=== PATIENT | female | born 1960 | race Caucasian/White ===

== ENCOUNTER 2016-07-04 15:22 | Inpatient (IN) | payer MEDICAID ==
[~2016-07-04] VITALS: Ht 170.2 cm; Wt 98.0 kg
[2016-07-04 16:27] LABS: Basophils # (auto) 0 uL; Eosinophils # (auto) 0 uL; Hematocrit 39.6 % (36.0-46.0); Lymphocytes # (auto) 1.2 uL; Lymphocytes % (auto) 10.3 % (10.0-50.0); Mean Corpuscular Hemoglobin 29.7 pg (28.0-32.0); Mean Corpuscular Hgb Conc. 32.8 g/dL (32.0-36.0); Mean Corpuscular Volume 90.7 fL (80.0-100.0); Mean Platelet Volume 9.7 fL (7.4-10.4); Monocytes # (auto) 0.8 uL; Monocytes % (auto) 6.2 % (0.0-12.0); Neutrophils # (auto) 10.1 uL; Neutrophils % (auto) 83.5 % (37.0-80.0); Platelet Count (auto) 219 10^3/uL (140-450); Red Cell Distribution Width 15.7 % (11.6-16.0)
[2016-07-04 17:00] LABS: Albumin 3.9 g/dL (3.4-5.0); Alkaline Phosphatase 89 U/L (45-117); Anion Gap 9 (5-15); Aspartate Aminotransferase 14 U/L (15-37); BUN/Creatinine Ratio 10.9; Bilirubin, Total 0.4 mg/dL (0.2-1.0); Blood Urea Nitrogen 10 mg/dL (7-18); Calcium 9.1 mg/dL (8.5-10.1); Carbon Dioxide 28 mmol/L (21-32); Chloride 109 mmol/L (98-107); GFR African American 81 mL/min; GFR Non-African American 67 mL/min; Glucose 125 mg/dL (74-106); Sodium 146 mmol/L (136-145); Total Protein 7.8 g/dL (6.4-8.2)
[2016-07-04 17:05] LABS: INR 0.96 (0.9-1.15); Partial Thromboplastin Time 28.1 sec (22.64-33.71); Prothrombin Time 10.4 sec (9.37-12.3)
[2016-07-04 17:10] LABS: Magnesium 2.5 mg/dL (1.6-2.6)
[2016-07-04] MEDS ORDERED: MORPHINE SULFATE 4 MG/ML SYRG IV ONE (21:30)
[2016-07-04] MEDS ORDERED: ONDANSETRON HCL 4 MG/2 ML VIAL IV ONE (21:30)
[2016-07-04] MEDS ORDERED: LEVOFLOXACIN 500MG 100 ML IV ONE (23:45)
[2016-07-05] MEDS ORDERED: HYDROmorphone HCL 2 MG/ML VL ONE (00:20)
[2016-07-05] MEDS ORDERED: ONDANSETRON HCL 4 MG/2 ML VIAL IV ONE ×2 (00:30→04:15)
[2016-07-05] MEDS ORDERED: HYDROmorphone HCL 2 MG/ML VL IV ONE (00:45)
[2016-07-05] MEDS ORDERED: DEXTROSE (50%) 50ML SYRG IV PRN (06:00)
[2016-07-05] MEDS ORDERED: LACTULOSE 20Gm/30ML SOLN PO PRN (06:00)
[2016-07-05] MEDS ORDERED: PROCHLORPERAZINE EDISYLATE 5 MG/ML 2ML VIAL IV PRN (06:00)
[2016-07-05] MEDS ORDERED: ALBUTEROL SULF 2.5 MG/0.5ML(0.5%) NEB SOLN NEB PRN (06:00)
[2016-07-05] MEDS ORDERED: NITROGLYCERIN 0.4 MG SL TAB SL PRN (06:00)
[2016-07-05] MEDS ORDERED: LORazepam 0.5 MG TAB PO PRN (06:00)
[2016-07-05] MEDS: ACCU-CHEK COMFORT CURVE STRIP VI SCH ×4 (06:00→23:31)
[2016-07-05] MEDS ORDERED: SODIUM CHLORIDE 0.9% 1,000 ML IV ONE (06:00)
[2016-07-05] MEDS ORDERED: ACETAMINOPHEN 500 MG TAB PO PRN (06:00)
[2016-07-05] MEDS ORDERED: MORPHINE SULF INJ 2 MG/ML SYRINGE 1ML IV PRN ×2 (06:00)
[2016-07-05] MEDS ORDERED: TEMAZEPAM 15 MG CAP PO PRN (06:00)
[2016-07-05] MEDS: ALBUTEROL SULF 2.5 MG/0.5ML(0.5%) NEB SOLN NEB SCH ×4 (08:45→21:15)
[2016-07-05] MEDS: SODIUM CHLORIDE 0.9% 1,000 ML IV SCH ×3 (08:58→16:23)
[2016-07-05] MEDS: cefTRIAXone 1GM/50ML D5W 50 ML IV SCH (09:05)
[2016-07-05] MEDS: HYDROcodone-ACET 5/325MG TAB PO PRN ×2 (09:09→18:24)
[2016-07-05] MEDS ORDERED: ENOXAPARIN SOD 40 MG/0.4 ML SYRINGE SC SCH (10:00)
[2016-07-05] MEDS: ASPirin 81 mg TAB PO SCH (10:15)
[2016-07-05] MEDS: AZITHROMYCIN 500MG/D5W 250ML 250 ML IV SCH (10:15)
[2016-07-05 14:02] VITALS: BP 97/73
[2016-07-05] MEDS ORDERED: ADENOSINE 72 MG in GIVE UN-DILUTED 0 ML IV ONE (14:30)
[2016-07-05 14:38] VITALS: BP 97/73
[2016-07-05] MEDS ORDERED: LISI-646 PO (14:39)
[2016-07-05] MEDS ORDERED: ASPI81CH43 PO (14:39)
[2016-07-05 16:27] VITALS: BP 128/74
[2016-07-05 21:31] VITALS: BP 120/75
[2016-07-05] MEDS ORDERED: ATORVASTATIN 20 MG TAB PO SCH (22:00)
[2016-07-06] MEDS: SODIUM CHLORIDE 0.9% 1,000 ML IV SCH (03:18)
[2016-07-06 04:47] VITALS: BP 121/77
[2016-07-06 05:32] LABS: Basophils # (auto) 0 uL; Basophils % (auto) 0.4 % (0.0-2.0); Eosinophils # (auto) 0 uL; Eosinophils % (auto) 0.8 % (0.0-7.0); Hematocrit 33.2 % (36.0-46.0); Lymphocytes # (auto) 1.6 uL; Lymphocytes % (auto) 28.1 % (10.0-50.0); Mean Corpuscular Hemoglobin 30.2 pg (28.0-32.0); Mean Corpuscular Hgb Conc. 33.1 g/dL (32.0-36.0); Mean Corpuscular Volume 91.3 fL (80.0-100.0); Mean Platelet Volume 9.6 fL (7.4-10.4); Monocytes # (auto) 0.5 uL; Monocytes % (auto) 8.4 % (0.0-12.0); Neutrophils # (auto) 3.5 uL; Neutrophils % (auto) 62.3 % (37.0-80.0); Platelet Count (auto) 161 10^3/uL (140-450); Red Cell Distribution Width 15.7 % (11.6-16.0); White Blood Cell 5.6 10^3/uL (4.4-10.8)
[2016-07-06] MEDS: ACCU-CHEK COMFORT CURVE STRIP VI SCH ×2 (05:41→12:15)
[2016-07-06 05:54] LABS: BUN/Creatinine Ratio 13.5; Calcium 8.1 mg/dL (8.5-10.1); Potassium 3.8 mmol/L (3.5-5.1)
[2016-07-06 09:00] VITALS: BP 130/84
[2016-07-06] MEDS: cefTRIAXone 1GM/50ML D5W 50 ML IV SCH (10:10)
[2016-07-06] MEDS: ASPirin 81 mg TAB PO SCH (10:10)
[2016-07-06] MEDS: AZITHROMYCIN 500MG/D5W 250ML 250 ML IV SCH (10:12)
[2016-07-06] MEDS ORDERED: SUMAtriptan SUCCINATE 6 MG/0.5 ML VL SC PRN ×2 (12:00→13:00)
[2016-07-06] MEDS: ALBUTEROL SULF 2.5 MG/0.5ML(0.5%) NEB SOLN NEB SCH ×2 (12:00→12:35)
[2016-07-06] MEDS ORDERED: AZI250T PO (12:17)
[2016-07-06] MEDS ORDERED: OMEP20CA5 PO (12:17)
[2016-07-06] MEDS ORDERED: SIMV-8 PO (12:17)
[2016-07-06 13:00] VITALS: BP 147/91
[2016-07-06 16:18] VITALS: BP 147/91
[2016-07-06 16:58] VITALS: BP 140/98
== END 2016-07-06 17:55 | disposition home or self-care (01) | DRG 243 ==
LOC: ER 15:30 → TELE 15:31 → TELE-E-ADS 07-05 12:33 → TELE-WESTW 07-05 14:35
PROVIDERS: ADMIT Internal Medicine; ATTEND Hospitalist
DX: K21.9 Gastro-esophageal reflux disease without esophagitis (principal); I10 Essential (primary) hypertension; E66.9 Obesity, unspecified; E78.5 Hyperlipidemia, unspecified; Z83.3 Family history of diabetes mellitus; Z82.49 Family history of ischemic heart disease and other diseases of the circulatory system; Z68.33 Body mass index [BMI] 33.0-33.9, adult; Z87.19 Personal history of other diseases of the digestive system
CPT/HCPCS: 36415; 71010; 71020; 78452; 80048; 80053; 80061; 82150; 82550; 82962; 83036; 83690; 83735; 84484; 85025; 85379; 85610; 85652; 85730; 86141; 87040; 93017; 94640; 94761; 96365; 96366; 96375; 96376; G0434; J0153; J0696; J1956; J2405

== ENCOUNTER 2019-06-13 04:55 | Emergency (ER) | payer MEDICAID, OTHER ==
[~2019-06-13] VITALS: Ht 170.2 cm; Wt 80.7 kg
[~2019-06-13 04:55] MED LIST: ASPI81CH43 PO; AZIT250T8 PO; LISI-646 PO; OMEP20CA74 PO; SIMV-8 PO
[2019-06-13 05:55] VITALS: BP 140/110
== END 2019-06-13 06:42 | disposition home or self-care (01) ==
LOC: ER 04:56
DX: H61.21 Impacted cerumen, right ear (principal); H66.91 Otitis media, unspecified, right ear; I10 Essential (primary) hypertension; Z90.710 Acquired absence of both cervix and uterus; Z79.899 Other long term (current) drug therapy

== ENCOUNTER 2019-07-05 09:20 | Emergency (ER) | payer SELFPAY ==
[~2019-07-05] VITALS: Ht 170.2 cm; Wt 80.7 kg
[2019-07-05 09:28] VITALS: BP 149/95
[2019-07-05] MEDS ORDERED: ALBUTEROL SULF 2.5 MG/0.5ML(0.5%) NEB SOLN NEB ONE (10:15)
[2019-07-05] MEDS ORDERED: IPRATROPIUM BROM 0.5 MG/2.5ML INH SOL NEB ONE (10:15)
== END 2019-07-05 10:47 | disposition home or self-care (01) ==
LOC: ER 09:20
DX: J20.9 Acute bronchitis, unspecified (principal); H92.02 Otalgia, left ear; I10 Essential (primary) hypertension; Z90.710 Acquired absence of both cervix and uterus; Z90.89 Acquired absence of other organs
CPT/HCPCS: 71046; 94640; 99283; J7644